=== PATIENT | male | born 2000 | race Caucasian/White ===

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

== ENCOUNTER → 2019-04-23 | Outpatient (CLI) | payer OTHER ==
--- NOTE | 2019-04-23 17:17 | Diagnostic Imaging Report ---
PROCEDURE: CT lumbar spine without contrast. TECHNIQUE: Multiple contiguous axial images were obtained through the lumbar spine without the use of intravenous contrast. Sagittal and coronal reformations were then performed. Auto Exposure Controls were utilized during the CT exam to meet ALARA standards for radiation dose reduction. INDICATION: Lumbago, pain. COMPARISON: MRI dated June 13, 2017. FINDINGS: Five lumbar-type vertebral bodies are present. Alignment of the lumbar spine is well maintained. Interbody disc device is present at L4/L5, new since the prior examination. [place] artifact from the disc device slightly limits evaluation of the adjacent structures. Vertebral body heights are well maintained. Disc space heights are well maintained. No pars interarticularis defect. Minimal facet joint degenerative changes at L4/L5. No acute fracture or dislocation. Visualized portions of the sacroiliac joints are intact. No high-grade central canal or neural foraminal stenosis. The paraspinal soft tissues are unremarkable. IMPRESSION: Interval placement of an interbody disc device at L4/L5. No acute osseous abnormality. No high-grade osseous central canal or neural foraminal stenosis. Dictated by: Dictated on workstation # [id number]
== END ==
LOC: RAD 14:47
PROVIDERS: ATTEND Physician Assistant
DX: M54.5 Low back pain (principal); Z96.698 Presence of other orthopedic joint implants
CPT/HCPCS: 72131